=== PATIENT | female | born 1950 | race Hispanic/Latino ===

== ENCOUNTER 2024-10-18 18:09 | Emergency (ER) | payer MEDICARE ==
[~2024-10-18] VITALS: Ht 157.5 cm; Wt 83.2 kg
[2024-10-18] MEDS ORDERED: IBU600 MG PO (18:45)
[2024-10-18] MEDS ORDERED: VALTREX1000 MG PO (18:45)
[2024-10-18] MEDS ORDERED: NEURONTIN300 MG PO (18:45)
[2024-10-18 18:57] VITALS: PULSE 67; RESP 18; TEMP 97.7; O2SAT 96
== END 2024-10-18 18:57 | disposition home or self-care (01) ==
LOC: FSED 18:11
DX: B02.29 Other postherpetic nervous system involvement (principal); S67.21XA Crushing injury of right hand, initial encounter; S67.190A Crushing injury of right index finger, initial encounter; Y92.89 Other specified places as the place of occurrence of the external cause; I10 Essential (primary) hypertension; F32.A Depression, unspecified
CPT/HCPCS: 83518; 87400; 99283